=== PATIENT | female | born 1955 | race Hispanic/Latino ===

== ENCOUNTER 2017-09-30 14:01 | Emergency (ER) | payer BC ==
[2017-09-30 14:16] VITALS: BP 154/77; PULSE 105; RESP 18; TEMP 98.7; O2SAT 94; BMI 33.3
--- NOTE | 2017-09-30 14:16 | ED PDOC ---
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 Patient also complains of mild shortness of breath. Patient denies any trauma, long travel, fever, chills, chest pain, nausea, vomiting, diarrhea, urinary symptoms, back pain, neck pain, headache, dizziness, or any other complaints. Time/Duration: 1 week, < week Symptom Onset: Gradual Symptom Course: Unchanged Context: Home Past Medical History - Provider Review Nursing Documentation Reviewed: Yes - Cardiac Hx Pacemaker: No - Neurological Hx Paralysis: No - Hematological/Oncological Hx Blood Transfusions: No Hx Blood Transfusion Reaction: No - Musculoskeletal/Rheumatological Hx Musculoskeletal Disorders: Yes - Psychiatric Hx Emotional Abuse: No Hx Physical Abuse: No Hx Substance Use: No - Anesthesia Hx Anesthesia Reactions: Yes Hx Malignant Hyperthermia: No - Suicidal Assessment Feels Threatened In Home Enviroment: No Family/Social History - Physician Review Nursing Documentation Reviewed: Yes Family/Social History: Unknown Family HX Hx Alcohol Use: Yes (SOCIALLY) Hx Substance Use: No Allergies/Home Meds Allergies/Adverse Reactions: Allergies ARTIFICAIL SWEETNERS Adverse Reaction (Intermediate, Uncoded 09/24/15 16:56) UPSET STOMACH Home Medications: Home Meds Medication Instructions Recorded Confirmed No Known Home Med 09/24/15 09/24/15 Review of Systems - Physician Review All systems were reviewed & negative as marked: Yes - Review of Systems Constitutional: absent: Fevers, Night Sweats Respiratory: SOB (mild) Cardiovascular: absent: Chest Pain Gastrointestinal: absent: Diarrhea, Nausea, Vomiting Genitourinary Female: absent: Dysuria Musculoskeletal: Other (lower extremity pain and swelling). absent: Back Pain, Neck Pain Neurological: absent: Headache, Dizziness Physical Exam Vital Signs Reviewed: Yes Vital Signs Temp Pulse Resp BP Pulse Ox 09/30/17 14:02 98.7 F 105 H 18 154/77 H 94 L Temperature: Afebrile Blood Pressure: Hypertensive Pulse: Tachycardic Respiratory Rate: Normal Appearance: Positive for: Well-Appearing, Non-Toxic, Comfortable Pain Distress: None Mental Status: Positive for: Alert and Oriented X 3 - Systems Exam Head: Present: Atraumatic, Normocephalic Pupils: Present: PERRL Extroacular Muscles: Present: EOMI Conjunctiva: Present: Normal Mouth: Present: Moist Mucous Membranes Neck: Present: Normal Range of Motion Respiratory/Chest: Present: Clear to Auscultation, Good Air Exchange. No: Respiratory Distress, Accessory Muscle Use Cardiovascular: Present: Regular Rate and Rhythm, Normal S1, S2. No: Murmurs Abdomen: No: Tenderness, Distention, Peritoneal Signs Back: Present: Normal Inspection Upper Extremity: Present: Normal Inspection. No: Cyanosis, Edema Lower Extremity: Present: Edema (bilateral). No: CALF TENDERNESS Neurological: Present: GCS=15, CN II-XII Intact, Speech Normal Skin: Present: Warm, Dry, Normal Color. No: Rashes Psychiatric: Present: Alert, Oriented x 3, Normal Insight, Normal Concentration Medical Decision Making ED Course and Treatment: 09/30/17 14:19 Impression: 62 year old female presents to the Emergency Department complaining of lower extremity pain and swelling. Plan: -- Left ankle xray -- Bilateral lower extremity US -- Reassess and disposition Progress Notes: - RAD Interpretation Narrative RAD Interpretations (Text): 09/30/2017 15:36:56 PROCEDURE: Left Ankle Radiographs. FINDINGS: BONES: Three views the left ankle were performed. Mild soft tissue swelling is noted. Degenerative changes of the left ankle are seen. No ankle mortise widening is noted. No fracture is identified. No lytic process is seen. Subtalar joint is unremarkable. Small calcaneal spur is noted. Visualized tarsal bones and metatarsals are intact. No large ankle joint effusion is seen. Talar dome is normal in outline. JOINTS: See above SOFT TISSUES: Mild soft tissue swelling OTHER FINDINGS: None. IMPRESSION: No fracture. No ankle mortise widening. Degenerative changes of the left ankle. Radiology Orders: 09/30/17 14:10 ANKLE LEFT 3 VIEWS ROUTINE [RAD] Stat DUPLEX LOWER EXTRM VEIN BILAT [US] Stat - Scribe Statement The provider has reviewed the documentation as recorded by the Rafitaibkathy Valerio Provider Scribe Attestation: All medical record entries made by the Scribe were at my direction and personally dictated by me. I have reviewed the chart and agree that the record accurately reflects my personal performance of the history, physical exam, medical decision making, and the department course for this patient. I have also personally directed, reviewed, and agree with the discharge instructions and disposition. Disposition/Present on Arrival - Present on Arrival Any Indicators Present on Arrival: No History of DVT/PE: No History of Uncontrolled Diabetes: No Urinary Catheter: No History of Decub. Ulcer: No History Surgical Site Infection Following: None - Disposition Have Diagnosis and Disposition been Completed?: Yes Diagnosis: Arthritis of left ankle Disposition: HOME/ ROUTINE Disposition Time: 15:29 Patient Plan: Discharge Patient Problems: Current Active Problems Problem Status Onset Arthritis of left ankle Acute Condition: GOOD Discharge Instructions (ExitCare): Osteoarthritis (DC) Additional Instructions: Joselyn- It was a pleasure meeting you. Please follow up with either Podiatry or Orthopedics. Return to us if any problems. Jeremy- Dr. Jacques Haddad Referrals: Manny Gonzalez MD [Primary Care Provider] - Follow up with primary Forms: [facility] ([place]ian), SCHOOL NOTE, WORK NOTE
--- NOTE | 2017-09-30 15:38 | RAD ---
PROCEDURE: Left Ankle Radiographs. HISTORY: Ankle Pain/ Previous Injuries, nothing recently COMPARISON: None FINDINGS: BONES: Three views the left ankle were performed. Mild soft tissue swelling is noted. Degenerative changes of the left ankle are seen. No ankle mortise widening is noted. No fracture is identified. No lytic process is seen. Subtalar joint is unremarkable. Small calcaneal spur is noted. Visualized tarsal bones and metatarsals are intact. No large ankle joint effusion is seen. Talar dome is normal in outline. JOINTS: See above SOFT TISSUES: Mild soft tissue swelling OTHER FINDINGS: None. IMPRESSION: No fracture. No ankle mortise widening. Degenerative changes of the left ankle.
--- NOTE | 2017-09-30 18:04 | US ---
PROCEDURE: Bilateral lower extremity venous duplex Doppler. HISTORY: RO DVT COMPARISON: None available. TECHNIQUE: Bilateral common femoral, superficial femoral, popliteal and posterior tibial veins were evaluated. Flow was assessed with color Doppler, compressibility, assessment of phasic flow and augmentation response. FINDINGS: COMMON FEMORAL VEIN: Right CFV: Unremarkable. Left CFV: Unremarkable. SUPERFICIAL FEMORAL VEIN: Right SFV: Unremarkable. Left SFV: Unremarkable. POPLITEAL VEIN: Right Popliteal: Unremarkable. Left Popliteal: Unremarkable. POSTERIOR TIBIAL VEIN: Right PTV: Unremarkable. Left PTV: Unremarkable. OTHER FINDINGS: None. IMPRESSION: No evidence of deep venous thrombosis.
== END 2017-09-30 16:16 | disposition home or self-care (01) ==
LOC: ED 14:01
DX: M19.072 Primary osteoarthritis, left ankle and foot (principal)